=== PATIENT | male | born 1980 | race Native Hawaiian/Other Pacific Islander ===

== ENCOUNTER 2023-03-01 16:36 | Observation (INO) | payer OTHER ==
[~2023-03-01] VITALS: Ht 188 cm; Wt 99.8 kg
[2023-03-01 16:36] VITALS: BP 185/129; TEMP 98.8
[2023-03-01 17:10] LABS: PLATELET COUNT 255 K/uL (142-355)
[2023-03-01 17:19] LABS: POTASSIUM 3.5 mmol/L (3.6-5.2)
[2023-03-01 17:41] VITALS: BP 167/109
[2023-03-01 18:39] VITALS: BP 169/117
[2023-03-01 19:55] VITALS: BP 160/100; TEMP 98.4; Ht 188 cm; Wt 99.8 kg
[2023-03-02] VITALS: BP 145/82; TEMP 98.1
[2023-03-02 04:00] VITALS: BP 134/59; TEMP 97.4
[2023-03-02 08:00] VITALS: BP 171/99; TEMP 98.5
[2023-03-02] MEDS ORDERED: [UNRECOGNIZED DRUG - OTHER] PO (11:38)
[2023-03-02 12:00] VITALS: BP 123/73; TEMP 98.5
== END 2023-03-02 14:55 | disposition home or self-care (01) ==
LOC: ED 16:40 → EDIP 18:52 → MED/SURG 03-02 07:51
PROVIDERS: Family Medicine; ADMIT Internal Medicine; ATTEND Internal Medicine
DX: I16.0 Hypertensive urgency (principal); R47.81 Slurred speech; E87.6 Hypokalemia; Z72.0 Tobacco use
CPT/HCPCS: 36415; 80053; 80061; 80307; 81002; 84443; 84484; 85027; 93005; 96361; 96372; 96374; 96375; 99221; 99284; G0378; J0360; J1650; J1885; J3490